=== PATIENT | female | born 1965 | race Caucasian/White ===

== ENCOUNTER 2017-07-14 03:53 | Emergency (ER) | payer BC, OTHER ==
[~2017-07-14] VITALS: Ht 154.9 cm; Wt 75.0 kg
[2017-07-14] MEDS ORDERED: RANO5TAB PO (04:12)
[2017-07-14] MEDS ORDERED: ROSU20TA PO (04:12)
[2017-07-14] MEDS ORDERED: LEVOTAB10 PO (04:12)
[2017-07-14] MEDS ORDERED: LEVO88TA3 PO (04:12)
[2017-07-14] MEDS ORDERED: BACL10TA2 PO (04:12)
[2017-07-14] MEDS ORDERED: PLAV1TAB2 PO (04:12)
[2017-07-14] MEDS ORDERED: METO-346 PO (04:12)
[2017-07-14] MEDS ORDERED: LISI2.5T3 PO (04:12)
[2017-07-14] MEDS ORDERED: KETOROLAC 30 MG/ML VIAL (J1885) IM ONE (07:30)
--- NOTE | 2017-07-14 07:51 | REP ---
Clinical: Pain. Technique: Internal rotation, external rotation, and Y view left shoulder . Findings: Subtle age-related changes include mild cortical irregularity at the acromioclavicular joint and subtle presumed blunting along the margin of the glenoid rim. Small focus of calcification overlies the greater tuberosity suggesting associated calcific tendinopathy. 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
--- NOTE | 2017-07-14 09:54 | REP ---
Clinical: Pain radiating to the left shoulder. Technique: AP, lateral, flexion/extension, bilateral oblique, and open-mouth views. Findings: Alignment and lordosis is maintained. There is no evidence for acute fracture / compression injury or subluxation. Mild age-related changes are appreciated without significant osteophytosis or disc space narrowing. Oblique views demonstrate patent neural foramen. Open mouth view demonstrates normal C1-C2 articulation and odontoid process. Impression: Mild age-related changes. No significant degenerative disc osteophyte identified. If the patient remains symptomatic consider MRI for further investigation. Signed by Farzad Finley MD 07/14/2017 09:45 A
--- NOTE | 2017-07-14 09:54 | REP ---
Clinical: Pain radiating to the left shoulder . Comparison: None . Technique: PA and lateral. Findings: The mediastinum and cardiac silhouette are normal. The lung king are clear and without acute consolidation, effusion, or pneumothorax. The skeletal structures are intact and normal. Impression: 1. No acute cardiopulmonary process. Signed by Farzad Finley MD 07/14/2017 09:45 A
--- NOTE | 2017-07-14 10:19 | REP ---
Clinical: Left-sided pain. Findings: The bilateral lung king are well-aerated, symmetric and clear. No consolidation, nodule or mass lesion appreciated. No pleural effusion or pneumothorax. Tracheobronchial tree is patent. The mediastinum demonstrates relatively normal thoracic aorta, heart and pericardium. No axillary, hilar, or mediastinal adenopathy is appreciated. The thoracic inlet appears symmetric and normal. Surrounding musculoskeletal structures without focal osseous abnormality. Impression: Normal noncontrast chest CT. Signed by Farzad Finley MD 07/14/2017 10:10 A
[2017-07-14] MEDS ORDERED: NAPR500T3 PO (10:33)
[2017-07-14] MEDS ORDERED: TYLE325T5 PO (10:33)
[2017-07-14 10:51] VITALS: BP 125/60
== END 2017-07-14 11:05 | disposition home or self-care (01) ==
LOC: M ED 03:53
DX: M25.512 Pain in left shoulder (principal); E03.9 Hypothyroidism, unspecified; Z79.899 Other long term (current) drug therapy; Z88.1 Allergy status to other antibiotic agents; Z88.2 Allergy status to sulfonamides
CPT/HCPCS: 71020; 71250; 72052; 73030; 96372; 99282; J1885